=== PATIENT | male | born 1965 | race Caucasian/White ===

== ENCOUNTER 2018-05-23 22:11 | Emergency (ER) | payer OTHER ==
[~2018-05-23] VITALS: Ht 165.1 cm; Wt 68.2 kg
[2018-05-23 22:16] VITALS: Ht 165.1 cm; Wt 68.2 kg
[2018-05-23] MEDS ORDERED: TRAZODONE HCL150 MG PO (22:18)
[2018-05-23] MEDS ORDERED: LIPITOR20 MG PO (22:18)
[2018-05-23] MEDS ORDERED: LISINOPRIL5 MG PO (22:18)
[2018-05-23] MEDS ORDERED: OS-CAL500 MG PO (22:18)
[2018-05-23] MEDS ORDERED: NOVOLOG (22:19)
[2018-05-23] MEDS ORDERED: LANTUS (22:19)
[2018-05-23 23:09] VITALS: BP 122/74
== END 2018-05-23 23:09 | disposition home or self-care (01) ==
LOC: D.ER 22:11
DX: S61.412A Laceration without foreign body of left hand, initial encounter (principal); W26.9XXA Contact with unspecified sharp object(s), initial encounter; Y93.89 Activity, other specified; Y92.019 Unspecified place in single-family (private) house as the place of occurrence of the external cause; E11.9 Type 2 diabetes mellitus without complications; I10 Essential (primary) hypertension

== ENCOUNTER 2020-02-11 22:17 | Emergency (ER) | payer OTHER ==
[~2020-02-11] VITALS: Ht 165.1 cm; Wt 68.2 kg
[~2020-02-11 22:17] MED LIST: LANTUS; LIPITOR20 MG PO; LISINOPRIL5 MG PO; NOVOLOG; OS-CAL500 MG PO; TRAZODONE HCL150 MG PO
[2020-02-11 22:20] VITALS: Ht 165.1 cm; Wt 68.2 kg
[2020-02-12 00:53] VITALS: BP 140/91
== END 2020-02-11 23:52 | disposition other institution (70) ==
LOC: D.ER 22:17
DX: S01.81XA Laceration without foreign body of other part of head, initial encounter (principal); S01.85XA Open bite of other part of head, initial encounter; W54.0XXA Bitten by dog, initial encounter; Y93.9 Activity, unspecified; Y92.9 Unspecified place or not applicable; E11.9 Type 2 diabetes mellitus without complications